=== PATIENT | male | born 1985 ===

== ENCOUNTER 2017-01-22 09:11 | Emergency (ER) | payer SELFPAY ==
[2017-01-22 09:35] VITALS: BP 120/66
--- NOTE | 2017-01-22 09:51 | UC ---
Throat Pain/Nasal Jim HPI - HPI Summary HPI Summary: Sore throat, body aches, & fever x1 day. [ End ] - History of Current Complaint Chief Complaint: UCGeneralIllness Stated Complaint: SORE THROAT,FEVER Time Seen by Provider: 01/22/17 09:49 Hx Obtained From: Patient Onset/Duration: Sudden Onset Severity: Mild Cough: Nonproductive - Epiglottits Risk Factors Epiglottis Risk Factors: Negative - Allergies/Home Medications Allergies/Adverse Reactions: Allergies Allergy/AdvReac Type Severity Reaction Status Date / Time No Known Allergies Allergy Verified 01/22/17 09:28 Home Medications: Home Medications Vyzmyqiwarvhg-Eddaqtfsbquit-Ut [Tylenol Sinus Severe 5-325-200 mg] 1 tab PO Q6H PRN 01/22/17 [History Confirmed 01/22/17] PMH/Surg Hx/FS Hx/Imm Hx Previously Healthy: Yes Endocrine History Of: Denies: Diabetes Cardiovascular History Of: Denies: Cardiac Disorders Respiratory History Of: Denies: COPD - Surgical History Surgical History: None - Family History Known Family History: Positive: None - Social History Occupation: Employed Full-time Lives: With Family Alcohol Use: Weekly Substance Use Type: Marijuana Substance Use Comment - Amount & Last Used: last used 3 days Smoking Status (MU): Never Smoked Tobacco Review of Systems Constitutional: Fever, Fatigue Skin: Negative Eyes: Negative ENT: Negative, Sore Throat Respiratory: Negative Cardiovascular: Negative Gastrointestinal: Negative Genitourinary: Negative Motor: Negative Neurovascular: Negative Musculoskeletal: Negative Neurological: Negative Psychological: Negative All Other Systems Reviewed And Are Negative: Yes Physical Exam Triage Information Reviewed: Yes Appearance: Well-Appearing, No Pain Distress, Well-Nourished Vital Signs: Initial Vital Signs Temp 99.9 F 01/22/17 09:29 Pulse 104 01/22/17 09:29 Resp 16 01/22/17 09:29 BP 120/66 01/22/17 09:29 Pulse Ox 97 01/22/17 09:29 Vital Signs Reviewed: Yes Eye Exam: Normal ENT Exam: Normal ENT: Positive: Pharyngeal erythema, Nasal congestion, Nasal drainage, TMs normal , Tonsillar exudate. Negative: Tonsillar swelling Dental Exam: Normal Neck exam: Normal Neck: Positive: 1 Respiratory Exam: Normal Cardiovascular Exam: Normal Abdominal Exam: Normal Musculoskeletal Exam: Normal Neurological Exam: Normal Psychological Exam: Normal Skin Exam: Normal Throat Pain/Nasal Course/Dx - Differential Dx/Diagnosis Differential Diagnosis/HQI/PQRI: Tonsillitis, URI Provider Diagnoses: strep throat Discharge - Discharge Plan Condition: Good Disposition: HOME Prescriptions: Amoxicillin (*) [Amoxicillin 875 MG (*)] 875 mg PO BID #20 tab Patient Education Materials: Strep Throat (ED) Referrals: Vanda SUAREZ,Migue Neal [Primary Care Provider] - 3 Days
== END 2017-01-22 10:07 | disposition home or self-care (01) ==
LOC: UCCORT 09:11
DX: J02.0 Streptococcal pharyngitis (principal)
CPT/HCPCS: 87651; 99202; G0463